=== PATIENT | female | born 1970 | race Caucasian/White ===

== ENCOUNTER 2024-07-17 07:12 | Day surgery (SDC) | payer BC, SELFPAY ==
[2024-07-03 12:14] VITALS: BMI 25.5
--- NOTE | 2024-07-06 16:16 | PTCARENOTE ---
Abn ECG, Dhaval Franklin notified, no new requests.
[2024-07-17] VITALS (8 sets, daily range): BP systolic 113–155; BP diastolic 74–84; BMI 25.5
[2024-07-17] MEDS: TYLENOL 1000 MG PO (07:54)
[2024-07-17] MEDS: NORMOSOL-R/PLASMALYTE-A 1000 IV (07:54)
== END 2024-07-17 10:54 | disposition home or self-care (01) ==
LOC: SDS 07:12
PROVIDERS: ATTENDING PHYSICIAN Specialist; FAMILY PHYSICIAN Family Medicine
DX: S83.242A Other tear of medial meniscus, current injury, left knee, initial encounter (principal); S83.282A Other tear of lateral meniscus, current injury, left knee, initial encounter; M22.42 Chondromalacia patellae, left knee
CPT/HCPCS: 29880; 36415; 93005

== ENCOUNTER 2024-08-28 08:19 | Emergency (ER) | payer BC, SELFPAY ==
[2024-08-28] VITALS (16 sets, daily range): BP systolic 150–185; BP diastolic 87–102; BMI 25.9
--- NOTE | 2024-08-28 09:24 | ED.GENMED ---
History of Present Illness
General
Chief Complaint: Blood Pressure Problem
Source: patient
Exam Limitations: none
Time Seen by Provider: 08/28/24 09:07
History of Present Illness
History of Present Illness:
54yoF with a history of hyperlipidemia, tachycardia, osteoporosis, and restless leg syndrome presenting for evaluation of elevated blood pressure. Patient was sick with a head cold last week which has mostly resolved. She was having difficulty going
to sleep last night which was unusual. She states she 'just did not feel right.' Her restless legs were acting up and she took an extra ropinirole. She also had an episode of palpitations last night which is not unusual for her. She reports a
gradual onset of a headache throughout the night. The headache is located on the left side of her head in the parietal region which radiates to the left ear. The headache is currently a 7/10 and is described as a dull, aching pain. She decided to
check her blood pressure this morning which was elevated at 189/108 so she decided to come to the ED. Of note, patient was at a [employer] about 2 weeks ago and he friend told her that she appeared flushed and her blood pressure was 160s/98 at that time.
She denies any chest pain, shortness of breath, visual changes, leg swelling.
Patient follows with cardiology at [facility]. She had preadmission testing last month before a meniscus repair and was told that her EKG showed an old heart attack. She saw her air defense artillery officer on 07/14/24 and multiple EKGs were obtained which she was
told were normal. She was previously on blood pressure medications although has been off antihypertensives for at least 5-6 years because blood pressures have been controlled. Her blood pressure was reportedly normal at her cardiology appt last
month and was normal during her procedure.
Phy Exam
General Physical Exam
General Presentation: well appearing and no apparent distress
General age: appears stated age
General Skin: warm and dry
General Habitus: normal
General Mental: alert
ENT Exam
ENT Exam: TM's normal, neck supple and normocephalic
Additional ENT: No temporal tenderness. No meningismus.
Eye Exam
Eye Exam: PERRL
Cardiovascular Exam
Cardiovascular Exam: regular rate/rhythm, no edema and no murmur
Pulmonary Exam
Pulmonary Exam: lungs clear, no respiratory distress, no rales, no crackles, no rhonchi and no wheezing
Neurological Exam
Neurological Exam: alert
[place] Coma Scale
Eye Opening: Spontaneous
Verbal Response: Oriented
Motor Response: Obeys Commands
GCS Total Score: 15
Skin Exam
Skin Exam: normal color and warm/dry
Psychiatric Exam
Psychiatric Exam: normal mood/affect
Course
Orders/Labs/Results
Orders:
Orders
08/28/24 08:24
EKG [Electrocardiogram (*1)] Urgent
Reason for Study: Hypertension, Benign
EKG- Treatment ONCE
08/28/24 09:22
CT Head W/o Iv Contrast Urgent
Comment:
Reason For Exam: acute headache
Cardiac Monitoring- Treatment ONCE
08/28/24 09:27
Acetaminophen [Tylenol] 1,000 mg PO NOW STA
08/28/24 09:39
Complete Blood Count/With Diff Urgent
Comprehensive Metabolic Panel Urgent
Free T4 Urgent
Magnesium Urgent
TSH Reflex To Free T4 Urgent
Troponin I Urgent
08/28/24 11:22
Amlodipine [Norvasc] 5 mg PO ONCE ONE
Abnormal Lab Results
08/28/24
09:39
RBC 4.15 L 10^6/uL
(4.20-5.40)
MCH 31.3 H pg
(27.0-31.0)
MCHC 32.7 L g/dL
(33.0-37.0)
AST 40 H U/L
(14-36)
ALT 43 H U/L
(0-35)
TSH (Reflex) 0.37 L uIU/ml
(0.47-4.68)
08/28/24 09:39
08/28/24 09:39
Vital Signs
Initial and Last Documented VS:
Initial Vital Signs
Temp Pulse Resp BP Pulse Ox
98.2 F 77 18 176/101 98
08/28/24 08:21 08/28/24 08:21 08/28/24 08:21 08/28/24 08:21 08/28/24 08:21
Last Documented Vital Signs
Temp Pulse Resp BP Pulse Ox
97.6 F 65 14 158/92 98
08/28/24 09:47 08/28/24 13:23 08/28/24 13:23 08/28/24 13:23 08/28/24 13:23
MDM/Problems Addressed
Differential Diagnosis Includes:
54yoF here with elevated blood pressure. C/o headache and 'not feeling right' since last night. BP 189/108 at home. No CP/SOB. No visual changes. BP 176/101 on arrival with otherwise normal vitals. She is well appearing in no distress. Exam
reassuring. Differential diagnosis includes but is not limited to: hypertension, hypertensive urgency, hypertensive emergency
Initial ED plan: Check cardiac labs, TSH, EKG, and CT head.
*EKG
Interpreted by ED Provider?: Yes
EKG Intrepretation Date: 08/28/24
Heart Rate: 68
Rate: normal
Rhythm: sinus
Pfeifer: left axis deviation
Interval: first degree heart block
QRS Pattern: normal QRS
Ischemia: no ischemia
*Critical Care Note
Total Time (30-74mins, 75-104mins- exclusive of procedures): Not Applicable
Update Note
Update Note:
EKG shows NSR without ischemic changes and troponin WNL. Mild transaminitis noted on labs of unclear significance as she has no abdominal complaints. TSH mildly low at 0.37 although T4 is normal. She recently recovered from a URI, possibly euthyroid
sick syndrome. Renal function normal. CT head is negative for acute findings. No evidence of end organ dysfunction on lab work. No indication for hospitalization. Blood pressure persistently elevated throughout ED stay although did improve to
158/92. Patient started on 5mg amlodipine daily and was given a prescription for a 30 day supply. Advised close f/u with PCP and her air defense artillery officer. Strict ED return precautions discussed. She expressed understanding and is in agreement with plan. She
was discharged in stable condition.
ED Attending Note
-
Portions of this chart may have been created with voice recognition software.� Occasional wrong word or��sound alike� substitutions may have occurred due to the inherent limitations of voice recognition software.
Discharge Plan
Departure
Patient Disposition: Home (Routine Discharge)
Date of Disposition: 08/28/24
Time of Disposition: 11:22
Patient with high blood pressure during this ER visit?: Yes
Discharge Problem:
Hypertension
Instructions: High Blood Pressure (DC)
Prescriptions:
New
amlodipine 5 mg tablet
5 mg PO DAILY Qty: 30 0RF
No Action
pantoprazole 40 MG tablet,delayed release (DR/EC)
40 mg PO BID
rosuvastatin 10 MG tablet
20 mg PO QPM
meloxicam 15 mg Tablet
15 mg PO DAILY
ropinirole 0.5 mg Tablet
0.5 mg PO BID
duloxetine 60 mg capsule,delayed release(DR/EC)
60 mg PO DAILY
Prolia 60 mg/mL Syringe
60 mg SC [id number]
halobetasol propionate 0.05 % Foam
1 applic TOPICAL BID
Zoryve 0.3 % Foam
1 applic TOPICAL DAILY
acetaminophen [Tylenol] 325 mg Tablet
650 mg PO Q4H PRN (Reason: pain)
ketoconazole 2 % Shampoo
1 applic TOPICAL ONCE
albuterol sulfate 90 mcg/actuation HFA aerosol inhaler
1 inh INHALATION DAILY
clobetasol 0.05 % Shampoo
1 applic TOPICAL DAILY
Dulera 100-5 mcg/actuation HFA aerosol inhaler
1 inh INHALATION
mecobalamin (vitamin B12) [B12 Active] 1,000 mcg Tablet,Chewable
1,000 mcg PO DAILY
calcium 100 mg Capsule
PO
cholecalciferol (vitamin D3) [Vitamin D3] 10 mcg (400 unit) Capsule
Referrals:
Silvia Greenberg MD [Family Provider] -
Activity Restrictions/Additional Instructions:
Take amlodipine as prescribed. Take blood pressure once daily and keep a log.
Please call your family doctor and air defense artillery officer today to schedule a follow-up appointment. Return to the ER with any worsening symptoms, severe headache, chest pain, or stroke symptoms.
Interventions
Interventions:
*Risk Screen - Suicide Last Done: 08/28/24 08:21
*General Assessment Last Done: 08/28/24 08:21
*Neglect/Abuse Screening Last Done: 08/28/24 08:21
ED- Fall Risk Assessment Last Done: 08/28/24 09:47
*ED COVID-19 Vaccine History Last Done: 08/28/24 08:21
*Nursing Disposition Last Done: 08/28/24 13:28
ED- Cardiac Assessment Last Done: 08/28/24 09:47
ED- Neurological Assessment Last Done: 08/28/24 09:47
ED- Pulmonary Assessment Last Done: 08/28/24 09:47
Discharge Date and Time
Discharge Date/Time: 08/28/24 13:30
Print Language: IRISH
[2024-08-28 09:55] LABS: % Basophils 0.6 % (0-2); % Immature Granulocytes 0.2 % (0-0.5); % Lymphocytes 34.3 % (20.5-51.1); % Monocytes 6.9 % (1.7-9.3); Absolute Eosinophils 0.2 10^3/uL (0-0.7); Absolute Lymphocytes 1.8 10^3/uL (1.2-3.4); Absolute Monocytes 0.4 10^3/uL (0.1-0.6); Absolute Neutrophils 2.8 10^3/uL (1.4-6.5); Hematocrit 39.7 % (37.0-47.0); Mean Corp Hgb Conc. 32.7 g/dL (33.0-37.0); Mean Corpuscular Hgb 31.3 pg (27.0-31.0); Mean Corpuscular Volume 95.7 fL (81.0-99.0); Mean Platelet Volume 9.2 fL (7.4-10.4); Nucleated Red Blood Cells % 0 %; Platelet Count 235 10^3/uL (130-400); Red Blood Cell Count 4.15 10^6/uL (4.20-5.40); Red Cell Dist. Width 13.3 % (11.5-14.5); White Blood Cell Count 5.3 10^3/uL (4.8-10.8)
[2024-08-28 10:07] LABS: ALT (SGPT) 43 U/L (0-35); AST (SGOT) 40 U/L (14-36); Albumin 4.2 g/dl (3.5-5.0); Alkaline Phosphatase 66 U/L (38-126); Blood Urea Nitrogen 15 mg/dl (7-17); Calcium 9.5 mg/dl (8.4-10.2); Carbon Dioxide 29 mmol/L (22-30); Chloride 101 mmol/L (98-107); Estimated Creatinine Clearance 92 ml/min; Glucose 88 mg/dl (70-99); Potassium 4.6 mmol/L (3.5-5.1); Sodium 138 mmol/L (135-145); Total Bilirubin 0.4 mg/dl (0.2-1.3); Total Protein 6.7 g/dl (6.3-8.2); eGFR > 60.00
[2024-08-28 10:18] LABS: Troponin I < 0.012 ng/ml
[2024-08-28] MEDS: TYLENOL 1000 MG PO (10:23)
[2024-08-28 10:37] LABS: TSH Reflex To Free T4 0.37 uIU/ml (0.47-4.68)
[2024-08-28 11:13] LABS: Free T4 1.07 ng/dl (0.78-2.19)
--- NOTE | 2024-08-28 11:21 | EDRN ---
Debra SEPULVEDA currently at the pts bedside
[2024-08-28] MEDS: NORVASC 5 MG PO (11:38)
== END 2024-08-28 13:30 | disposition home or self-care (01) ==
LOC: EMR 08:19
PROVIDERS: Physician Assistant; EMERGENCY PHYSICIAN Emergency Medicine; FAMILY PHYSICIAN Family Medicine
DX: I10 Essential (primary) hypertension (principal); E78.00 Pure hypercholesterolemia, unspecified; G25.81 Restless legs syndrome; I25.2 Old myocardial infarction; M81.0 Age-related osteoporosis without current pathological fracture
CPT/HCPCS: 99284; 70450; 80053; 83735; 84439; 84443; 84484; 85025; 93005